=== PATIENT | female | born 1980 | race Caucasian/White ===

== ENCOUNTER → 2024-02-14 08:49 | Outpatient (REF) | payer BC, SELFPAY | LOC: WDC 08:49 | PROVIDERS: ATTENDING PHYSICIAN Obstetrics & Gynecology | DX: R92.2 Inconclusive mammogram (principal) | CPT/HCPCS: 76641 ==

== ENCOUNTER → 2025-01-22 13:33 | Outpatient (REF) | payer BC, SELFPAY | LOC: WDC 13:33 | PROVIDERS: ATTENDING PHYSICIAN Obstetrics & Gynecology; FAMILY PHYSICIAN Nurse Practitioner Adult Health | DX: Z12.31 Encounter for screening mammogram for malignant neoplasm of breast (principal) | CPT/HCPCS: 77063; 77067 ==

== ENCOUNTER → 2025-03-20 13:37 | Outpatient (REF) | payer BC, SELFPAY | LOC: PAVMRI 13:37 | PROVIDERS: ATTENDING PHYSICIAN Nurse Practitioner Adult Health | DX: M54.12 Radiculopathy, cervical region (principal); M77.11 Lateral epicondylitis, right elbow; R93.7 Abnormal findings on diagnostic imaging of other parts of musculoskeletal system; D49.2 Neoplasm of unspecified behavior of bone, soft tissue, and skin | CPT/HCPCS: 72141 ==